=== PATIENT | female | born 1980 | race Caucasian/White ===

== ENCOUNTER 2024-03-31 22:19 | Emergency (ER) | payer MEDICAID ==
[~2024-03-31] VITALS: Ht 172.7 cm; Wt 77.0 kg
[2024-03-31 22:33] VITALS: O2SAT 99
[2024-04-01] MEDS: ACETAMINOPHEN 325MG TABLET PO ONE (02:06)
[2024-04-01] MEDS: METOCLOPRAMIDE HCL 10MG TABLET PO ONE (02:06)
[2024-04-01] MEDS: ACETAMINOPHEN 325MG TABLET PO NR (02:08)
[2024-04-01] MEDS: METOCLOPRAMIDE HCL 10MG TABLET PO NR (02:08)
[2024-04-01 02:45] VITALS: BP 132/82; PULSE 98; RESP 18; TEMP 36.89184; O2SAT 98
== END 2024-04-01 02:45 | disposition home or self-care (01) ==
LOC: ER 22:19
DX: B34.9 Viral infection, unspecified (principal); E11.9 Type 2 diabetes mellitus without complications; R11.2 Nausea with vomiting, unspecified
CPT/HCPCS: 99283; 81025; 87804 ×2; J8597

== ENCOUNTER 2024-12-04 21:01 | Emergency (ER) | payer MEDICAID, OTHER ==
[~2024-12-04] VITALS: Ht 172.7 cm; Wt 74.8 kg
[2024-12-04 21:30] VITALS: TEMP 36.9; O2SAT 97
[2024-12-04 22:00] LABS: BASOPHILS % 0.5 % (0.0-2.0); EOSINOPHILS % 1.4 % (0.0-5.0); HEMATOCRIT. 44.8 % (36.0-48.0); HEMOGLOBIN. 15.5 g/dL (12.0-16.0); LYMPHOCYTES % 9.3 % (20.0-50.0); MEAN PLATELET VOLUME 9.1 fl (7.4-10.4); MONOCYTES % 5.1 % (2.0-8.0); NEUTROPHILS % 83.7 % (40.0-76.0); PLATELET 241 x1000/uL (130-400); RED BLOOD CELL COUNT 5.08 mill/uL (4.2-5.4); RED CELL DISTRIBUTION WIDTH 12.7 % (11.6-14.6)
[2024-12-04 22:16] LABS: CREATININE 0.8 mg/dL (0.6-1.0); HCG SCREEN NEGATIVE; UREA NITROGEN BLOOD 14 mg/dL (9-23)
[2024-12-04] MEDS: ONDANSETRON HCL 4MG TABLET PO ONE (22:16)
[2024-12-04] MEDS: KETOROLAC 15MG/ML VIAL IM ONE (22:16)
[2024-12-04 22:18] LABS: ASPARTATE AMINOTRANSFERASE 14 IU/L (<34); BILIRUBIN DIRECT 0.2 mg/dL (<=3.0); BILIRUBIN TOTAL 0.7 mg/dL (0.1-1.0); PROTEIN TOTAL 7.7 g/dL (6.0-8.3)
[2024-12-04 22:31] LABS: CLARITY URINE TURBID (CLEAR); COLOR URINE ORANGE (YELLOW); GLUCOSE URINE 3+ (NEGATIVE); KETONES URINE 2+ (NEGATIVE); LEUKOCYTE ESTERASE URINE 1+ (NEGATIVE); NITRITE URINE POSITIVE (NEGATIVE); OCCULT BLOOD URINE 3+ (NEGATIVE); PH URINE 5.0 (4.5-8.0); PROTEIN URINE 3+ (NEGATIVE); SPECIFIC GRAVITY URINE 1.037 (1.005-1.030); UROBILINOGEN URINE 1.0 E.U./dL (0.2-1.0)
[2024-12-04 22:35] LABS: UCG KIT EXPIRATION DATE 01/03/2027; UCG KIT LOT# 958452; UCG SCREEN NEGATIVE
[2024-12-04 22:53] LABS: BACTERIA URINE 1+; RBC URINE TNTC /hpf (0-2); SQUAMOUS EPITHELIAL CELL URINE 1+ /lpf (RARE/1+); WBC URINE TNTC /hpf (0-2)
[2024-12-05] MEDS ORDERED: CEFP200T13 MT (00:34)
[2024-12-05 01:07] VITALS: BP 120/89; PULSE 116; RESP 16; O2SAT 96
[2024-12-05] MEDS ORDERED: NAPR-1176 MT (01:07)
== END 2024-12-05 01:13 | disposition home or self-care (01) ==
LOC: ER 21:16
DX: N12 Tubulo-interstitial nephritis, not specified as acute or chronic (principal); E11.9 Type 2 diabetes mellitus without complications; Z79.1 Long term (current) use of non-steroidal anti-inflammatories (NSAID)
CPT/HCPCS: 99285; 74176; 80076; 80048; 81003; 81025; 84703; 85025; 86850; 86900; 86901; 87086; 87186; 87077; 36415; 96372; J1885; Q0162